=== PATIENT | male | born 1965 | race African-American/Black ===

== ENCOUNTER 2019-03-05 13:39 | Emergency (ER) | payer OTHER, BC ==
[2019-03-05 13:51] VITALS: BP 136/88; PULSE 78; TEMP 98.5; BMI 27.4
[2019-03-05] MEDS ORDERED: KETOROLAC TROMETHAMINE 60 MG/2 ML VIAL IM ONE (14:25)
[2019-03-05] MEDS ORDERED: KETOROLAC TROMETHAMINE 60 MG/2 ML VIAL ONE (14:31)
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
== END 2019-03-05 15:52 | disposition home or self-care (01) ==
LOC: JERFT 13:39
PROC: 3E0233Z Introduction of Anti-inflammatory into Muscle, Percutaneous Approach (ICD-10-PCS; principal; 2019-03-05)
DX: M54.42 Lumbago with sciatica, left side (principal); M54.2 Cervicalgia; M62.830 Muscle spasm of back; V69.49XA Driver of heavy transport vehicle injured in collision with other motor vehicles in traffic accident, initial encounter; Y92.488 Other paved roadways as the place of occurrence of the external cause; Y93.89 Activity, other specified; Y99.0 Civilian activity done for income or pay
CPT/HCPCS: 71046-TC-FY; 72050-TC-FY; 72070-TC-FY; 72100-TC-FY; 99281-25

== ENCOUNTER 2019-09-11 07:38 | Emergency (ER) | payer BC, OTHER ==
[2019-09-11 07:51] VITALS: BP 128/68; PULSE 71; TEMP 98.2; BMI 25.8
--- NOTE | 2019-09-11 08:49 | PDOC ---
History of Present Illness - General Chief Complaint: Cold Symptoms Stated Complaint: CONGESTION,WEAK,HEADACHE Time Seen by Provider: 09/11/19 08:22 History Source: Patient Exam Limitations: No Limitations Past History - Past Medical History Allergies/Adverse Reactions: Allergies Allergy/AdvReac Type Severity Reaction Status Date / Time peanut Allergy Intermediate Vomiting Verified 02/19/15 13:22 Home Medications: Ambulatory Orders Cyclobenzaprine HCl [Flexeril -] 10 mg PO HS #10 tablet 03/05/19 Ibuprofen 800 mg PO TID #30 tablet 03/05/19 COPD: No - Surgical History Cholecystectomy: No - Immunization History Immunization Up to Date: No - Psycho Social/Smoking Cessation Hx Smoking Status: Yes Smoking History: Current every day smoker Have you smoked in the past 12 months: Yes Number of Cigarettes Smoked Daily: 10 Information on smoking cessation initiated: No Hx Alcohol Use: No Drug/Substance Use Hx: No *Physical Exam - Vital Signs Last Vital Signs Temp Pulse Resp BP Pulse Ox 98.2 F 71 16 128/68 100 09/11/19 07:47 09/11/19 07:47 09/11/19 07:47 09/11/19 07:47 09/11/19 07:47 - Physical Exam General Appearance: No: Apparent Distress HEENT: positive: Nasal Congestion, Other (slight postnasal drip). negative: Pharyngeal Erythema, Tonsillar Exudate, Tonsillar Erythema, Rhinorrhea, Sinus Tenderness Respiratory/Chest: positive: Lungs Clear, Normal Breath Sounds. negative: Respiratory Distress Cardiovascular: positive: Regular Rhythm, Regular Rate, S1, S2. negative: Murmur Gastrointestinal/Abdominal: positive: Soft. negative: Tender Integumentary: positive: Normal Color Neurologic: positive: Alert, Normal Mood/Affect Medical Decision Making - Medical Decision Making 54 y/o M with no sig pmh presents with congestion, sneezing, rhinorrhea, teary eyes x 1 week. Saw his PCP last week who gave him Azithromycin and Promethazine for possible bronchitis but states it did not help. +smoker (around 1 pack every 2-3 days). +sweating last night. Denies ear pain, throat pain, sob, cp, abd pain, n/v/d, recent travel, sick contacts Probable allergic rhinitis Care d/w patient stable for dc 09/11/19 08:45 Discharge - Discharge Information Problems reviewed: Yes Clinical Impression/Diagnosis: Allergic rhinitis Qualifiers: Allergic rhinitis trigger: unspecified Allergic rhinitis seasonality: unspecified Qualified Code(s): J30.9 - Allergic rhinitis, unspecified Condition: Stable Disposition: HOME - Admission No - Additional Discharge Information Prescription Drug Monitoring Program (I-STOP) results: I-STOP not reviewed - Follow up/Referral - Patient Discharge Instructions Patient Printed Discharge Instructions: Allergic Rhinitis Additional Instructions: Thank you for choosing [facility]. It was a pleasure taking care of you. Recommend trying Sudafed for nasal congestion Can also try Flonase nasal spray and Nedi-Pot (available OTC) for congestion Also recommend trying Claritin or Adriana for your allergies Follow-up with your doctor in 2-3 days Return to the Emergency Department if your symptoms worsen or persist or have other concerning symptoms. - Post Discharge Activity
== END 2019-09-11 08:50 | disposition home or self-care (01) ==
LOC: JER 07:38
DX: J30.9 Allergic rhinitis, unspecified (principal); F17.210 Nicotine dependence, cigarettes, uncomplicated; Z91.010 Allergy to peanuts
CPT/HCPCS: 99281-25